=== PATIENT | male | born 1990 | race African-American/Black ===

== ENCOUNTER 2023-08-16 01:46 | Emergency (ER) | payer MEDICAID, OTHER ==
[~2023-08-16] VITALS: Ht 177.8 cm; Wt 66.2 kg
[2023-08-16 01:57] VITALS: BP 131/83; PULSE 109; RESP 16; O2SAT 98
== END 2023-08-16 03:26 | disposition left against medical advice (07) ==
LOC: ER 01:46
DX: J02.9 Acute pharyngitis, unspecified (principal); Z53.21 Procedure and treatment not carried out due to patient leaving prior to being seen by health care provider